=== PATIENT | male | born 1995 | race Caucasian/White ===

== ENCOUNTER 2017-07-06 14:35 | Emergency (ER) | payer OTHER | END 2017-07-06 15:26 | disposition home or self-care (01) | LOC: E/R 14:35 | DX: H10.9 Unspecified conjunctivitis (principal); R11.2 Nausea with vomiting, unspecified; I10 Essential (primary) hypertension | CPT/HCPCS: 99284; Z7502 ==

== ENCOUNTER 2018-05-30 16:25 | Emergency (ER) | payer OTHER ==
[2018-05-30] MEDS: ACETAMINOPHEN 500 MG TAB PO (17:23)
[2018-05-30] MEDS: ONDANSETRON (ODT) 4 MG TAB ODT (17:23)
== END 2018-05-30 20:48 | disposition home or self-care (01) ==
LOC: FTE 16:25
DX: J02.0 Streptococcal pharyngitis (principal)
CPT/HCPCS: 99283; Z7502